=== PATIENT | female | born 1940 | race Caucasian/White ===

== ENCOUNTER → 2018-01-21 | Day surgery (SDC) | payer MEDICARE, OTHER ==
[~2018-01-21] MED LIST: ALPRAZOLAM0.5 M1 PO; ALPRAZOLAM0.5 MG PO; ASPIR 8181 MG PO; BENADRYL25 M1 PO; CARVEDILOL3.125 MG PO; CYMBALTA60 MG PO; ELMIRON100 MG PO; FLECAINIDE ACET50 MG PO; FLUOXETINE HCL20 MG PO; IMMODIUM; IMODIUM2 MG PO; LEVOTHYROXINE100 MCG PO; LIDOCAINE HCL 2% LOCAL INJ 5 ML SDV VIAL INJ ONE; METOPROLOL TART50 MG PO; MONTELUKAST SOD10 MG PO; NITROFURANTOIN100 MG PO; NYSTATIN500000 UNI PO; OMEPRAZOLE40 MG PO; PANTOPRAZOLE SO20 MG PO; PREDNISONE10 MG PO; PROPOFOL IV EMULSION 10 MG/ML 50 ML VIAL ONE; SINGULAIR10 MG PO; VALACYCLOVIR500 MG PO; ZOLPIDEM TARTRA10 MG PO
== END | disposition home or self-care (01) ==
LOC: OR 06:51
PROVIDERS: ATTEND Internal Medicine Gastroenterology
DX: Z12.11 Encounter for screening for malignant neoplasm of colon (principal); K63.5 Polyp of colon; K57.30 Diverticulosis of large intestine without perforation or abscess without bleeding; K64.8 Other hemorrhoids; K21.9 Gastro-esophageal reflux disease without esophagitis; G43.909 Migraine, unspecified, not intractable, without status migrainosus; J44.9 Chronic obstructive pulmonary disease, unspecified; G47.33 Obstructive sleep apnea (adult) (pediatric); I10 Essential (primary) hypertension; E03.9 Hypothyroidism, unspecified; F32.9 Major depressive disorder, single episode, unspecified; Z95.0 Presence of cardiac pacemaker; Z87.891 Personal history of nicotine dependence; Z80.0 Family history of malignant neoplasm of digestive organs
CPT/HCPCS: 45385; 93005; J2001

== ENCOUNTER 2018-03-11 13:29 | Emergency (ER) | payer MEDICARE, OTHER ==
[~2018-03-11] VITALS: Ht 172.7 cm; Wt 65.3 kg
[~2018-03-11 13:29] MED LIST changes: -LIDOCAINE HCL 2% LOCAL INJ 5 ML SDV VIAL INJ ONE; -PROPOFOL IV EMULSION 10 MG/ML 50 ML VIAL ONE
[2018-03-11] MEDS ORDERED: KETOROLAC TROMETHAMINE 30 MG/ML VIAL IV STA (14:23)
[2018-03-11] MEDS ORDERED: SODIUM CHLORIDE 0.9% 1000ML 1,000 ML IV ONE (14:30)
[2018-03-11] MEDS ORDERED: METOCLOPRAMIDE HCL 10 MG/2ML VIAL IV ONE (14:30)
[2018-03-11 14:59] LABS: BASOPHILS # (AUTO) 0.1 (0.0-0.1); BASOPHILS % 0.5 % (0.0-1.0); EOSINOPHILS # (AUTO) 0.1 (0.0-0.4); EOSINOPHILS % 0.5 % (0.0-6.0); HEMOGLOBIN 11.2 g/dL (12.0-16.0); LYMPHOCYTES # (AUTO) 1.6 (1.0-3.2); LYMPHOCYTES % 12.2 % (18.0-39.1); MEAN CORPUSCULAR HEMOGLOBIN 25.1 pg (28-32); MEAN CORPUSCULAR HGB CONC 29.5 g/dL (31-35); MONOCYTES # (AUTO) 0.7 (0.2-0.8); NEUTROPHILS # (AUTO) 10.6 (2.1-6.9); NEUTROPHILS % 81.3 % (38.7-80.0); PLATELET COUNT 304 x10e3/uL (140-360); RED BLOOD COUNT 4.47 x10e6/uL (3.6-5.1); RED CELL DISTRIBUTION WIDTH 15.4 % (11.7-14.4)
[2018-03-11 15:08] LABS: CLARITY,URINE SL CLOUDY (CLEAR); COLOR,URINE YELLOW (YELLOW); KETONES,URINE NEGATIVE (NEGATIVE); LEUKOCYTE ESTERASE ,URINE NEGATIVE (NEGATIVE); NITRITE,URINE NEGATIVE (NEGATIVE); PROTEIN,URINE DIPSTICK TRACE (NEGATIVE)
[2018-03-11 15:09] LABS: BILIRUBIN,URINE NEGATIVE (NEGATIVE); URINE UROBILINOGEN 0.2 mg/dL (0.2 - 1)
[2018-03-11 15:15] LABS: ALANINE AMINOTRANSFERASE 17 IU/L (0-55); ALBUMIN 3.5 g/dL (3.5-5.0); ALBUMIN/GLOBULIN RATIO 0.9 (0.8-2.0); ALKALINE PHOSPHATASE 71 IU/L (40-150); ANION GAP 12.5 mmol/L (8-16); BLOOD UREA NITROGEN 11 mg/dL (7-26); BUN/CREATININE RATIO 16 (6-25); CALCIUM 9.4 mg/dL (8.4-10.2); CARBON DIOXIDE 26 mmol/L (22-29); CHLORIDE 103 mmol/L (98-107); EST GLOMERULAR FILTRATION RATE > 60 ML/MIN (60-); GLUCOSE 122 mg/dL (74-118); POTASSIUM 3.5 mmol/L (3.5-5.1); SODIUM 138 mmol/L (136-145)
[2018-03-11 15:20] LABS: BACTERIA,URINE MODERATE /HPF; EPITHELIAL CELLS,URINE MODERATE /LPF; RBC,URINE 0-5 /HPF (0-5)
== END 2018-03-11 16:17 | disposition home or self-care (01) ==
LOC: ER 13:34
DX: B34.9 Viral infection, unspecified (principal); R51 Headache; I10 Essential (primary) hypertension; E03.9 Hypothyroidism, unspecified; F41.8 Other specified anxiety disorders; Z79.82 Long term (current) use of aspirin
CPT/HCPCS: 36415; 80053; 81001; 85025; 96374; 96376; 99284; J1885; J2765; J7030

== ENCOUNTER 2019-09-18 15:07 | Emergency (ER) | payer MEDICARE, OTHER ==
[~2019-09-18] VITALS: Ht 172.7 cm; Wt 65.3 kg
[2019-09-18 16:17] LABS: BILIRUBIN,URINE NEGATIVE (NEGATIVE); CLARITY,URINE SL CLOUDY (CLEAR); KETONES,URINE NEGATIVE (NEGATIVE); LEUKOCYTE ESTERASE ,URINE SMALL (NEGATIVE); NITRITE,URINE POSITIVE (NEGATIVE); PROTEIN,URINE DIPSTICK TRACE (NEGATIVE); URINE UROBILINOGEN 2 mg/dL (0.2 - 1)
[2019-09-18 16:18] LABS: COLOR,URINE ORANGE (YELLOW)
[2019-09-18 16:33] LABS: BACTERIA,URINE MODERATE /HPF; EPITHELIAL CELLS,URINE MODERATE /LPF; RENAL EPITHELIAL CELLS,URINE RARE; TRANSITIONAL EPI CELLS,URINE FEW
[2019-09-18] MEDS ORDERED: CEFTRIAXONE SOD 1 GM VIAL IM NR (17:30)
[2019-09-18] MEDS ORDERED: LIDOCAINE HCL 1% LOCAL INJ 20 ML VIAL ONE (17:47)
[2019-09-18 17:54] VITALS: BP 155/58
== END 2019-09-18 18:03 | disposition home or self-care (01) ==
LOC: ER 15:07
DX: R30.0 Dysuria (principal); N30.91 Cystitis, unspecified with hematuria; I10 Essential (primary) hypertension; E03.9 Hypothyroidism, unspecified; F32.9 Major depressive disorder, single episode, unspecified
CPT/HCPCS: 81001; 87086; 87186; 99283; J0696; J2001

== ENCOUNTER 2021-08-15 17:15 | Emergency (ER) | payer MEDICARE, OTHER ==
[~2021-08-15] VITALS: Ht 172.7 cm; Wt 65.3 kg
[2021-08-15] MEDS ORDERED: TRAMADOL HCL 50 MG TAB PO ONE (18:30)
[2021-08-15] MEDS ORDERED: DEXAMETHASONE SOD PHOS 10 MG/1 ML VIAL IM ONE (18:30)
[2021-08-15] MEDS ORDERED: MORPHINE SULFATE INJ 4 MG/ML INJ 1ML IV STA (19:16)
[2021-08-15] MEDS ORDERED: ONDANSETRON HCL INJ 2MG/ML 2ML 2 MG/ML VIAL IV STA (19:16)
[2021-08-15 20:22] LABS: BASOPHILS % 0.2 % (0.0-1.0); HEMATOCRIT 34.3 % (34.2-44.1); HEMOGLOBIN 10.2 g/dL (12.0-16.0); LYMPHOCYTES # (AUTO) 0.8 (1.0-3.2); LYMPHOCYTES % 4.3 % (18.0-39.1); MEAN CORPUSCULAR HEMOGLOBIN 26.2 pg (28-32); MEAN CORPUSCULAR HGB CONC 29.7 g/dL (31-35); MEAN CORPUSCULAR VOLUME 87.9 fL (81-99); MONOCYTES # (AUTO) 1.7 (0.2-0.8); MONOCYTES % 9.3 % (4.4-11.3); NEUTROPHILS # (AUTO) 15.2 (2.1-6.9); NEUTROPHILS % 85.5 % (38.7-80.0); PLATELET COUNT 333 x10e3/uL (140-360); RED CELL DISTRIBUTION WIDTH 15.4 % (11.7-14.4)
[2021-08-15 20:30] LABS: INR 1.1; PROTHROMBIN TIME 14.6 seconds (11.9-14.5)
[2021-08-15 20:31] LABS: PARTIAL THROMBOPLASTIN TIME 28.1 seconds (23.8-35.5)
[2021-08-15 20:40] LABS: ALBUMIN 3.3 g/dL (3.5-5.0); ALBUMIN/GLOBULIN RATIO 0.9 (0.8-2.0); ANION GAP 16.3 mmol/L (8-16); CALCIUM 8.7 mg/dL (8.4-10.2); CREATININE, SERUM 0.71 mg/dL (0.57-1.11); POTASSIUM 3.3 mmol/L (3.5-5.1)
== END 2021-08-15 23:20 | disposition other institution (70) ==
LOC: ER 17:30
DX: S72.141A Displaced intertrochanteric fracture of right femur, initial encounter for closed fracture (principal); M48.54XA Collapsed vertebra, not elsewhere classified, thoracic region, initial encounter for fracture; M54.50 Low back pain, unspecified; E87.6 Hypokalemia; I10 Essential (primary) hypertension; E03.9 Hypothyroidism, unspecified; F41.9 Anxiety disorder, unspecified; Z20.822 Contact with and (suspected) exposure to COVID-19
CPT/HCPCS: 36415; 72131; 72192; 80053; 85025; 85610; 85730; 93005; 99284; J1100; J2270; J2405; U0002

== ENCOUNTER 2022-06-10 12:44 | Emergency (ER) | payer MEDICARE, OTHER ==
[~2022-06-10] VITALS: Ht 172.7 cm; Wt 65.3 kg
[2022-06-10] MEDS ORDERED: HYDROCODONE/APAP 5MG-325MG TAB PO PRN (14:30)
[2022-06-10] MEDS ORDERED: CELEBREX100 MG PO (15:28)
== END 2022-06-10 15:40 | disposition home or self-care (01) ==
LOC: ER 13:00
DX: M54.50 Low back pain, unspecified (principal); G89.29 Other chronic pain; I10 Essential (primary) hypertension; E03.9 Hypothyroidism, unspecified; F41.9 Anxiety disorder, unspecified; Z95.810 Presence of automatic (implantable) cardiac defibrillator; Z85.89 Personal history of malignant neoplasm of other organs and systems
CPT/HCPCS: 72110; 99283

== ENCOUNTER 2024-09-02 09:49 | Emergency (ER) | payer MEDICARE, OTHER ==
[~2024-09-02] VITALS: Ht 172.7 cm; Wt 65.3 kg
[~2024-09-02 09:49] MED LIST changes: +CELEBREX100 MG PO
[2024-09-02 09:53] VITALS: PULSE 84; RESP 18; O2SAT 97
[2024-09-02 10:18] VITALS: TEMP 97.5
[2024-09-02 10:39] LABS: BASOPHILS # (AUTO) 0.1 (0.0-0.1); BASOPHILS % 1.1 % (0.0-1.0); EOSINOPHILS # (AUTO) 0.2 (0.0-0.4); EOSINOPHILS % 2.9 % (0.0-6.0); HEMATOCRIT 46.8 % (34.2-44.1); HEMOGLOBIN 14.4 g/dL (12.0-16.0); LYMPHOCYTES # (AUTO) 1.3 (1.0-3.2); LYMPHOCYTES % 17.4 % (18.0-39.1); MEAN CORPUSCULAR HEMOGLOBIN 30.3 pg (28-32); MEAN CORPUSCULAR HGB CONC 30.8 g/dL (31-35); MEAN CORPUSCULAR VOLUME 98.5 fL (81-99); MONOCYTES # (AUTO) 0.5 (0.2-0.8); MONOCYTES % 6.6 % (4.4-11.3); NEUTROPHILS # (AUTO) 5.2 (2.1-6.9); NEUTROPHILS % 71.7 % (38.7-80.0); PLATELET COUNT 223 x10e3/uL (140-360); RED BLOOD COUNT 4.75 x10e6/uL (3.6-5.1); WHITE BLOOD COUNT 7.25 x10e3/uL (4.8-10.8)
[2024-09-02 10:48] LABS: BILIRUBIN,URINE NEGATIVE (NEGATIVE); CLARITY,URINE CLOUDY (CLEAR); COLOR,URINE YELLOW (YELLOW); GLUCOSE, URINE NEGATIVE (NEGATIVE); KETONES,URINE NEGATIVE (NEGATIVE); LEUKOCYTE ESTERASE ,URINE TRACE (NEGATIVE); NITRITE,URINE POSITIVE (NEGATIVE); PH,URINE 7 (5 - 7); PROTEIN,URINE DIPSTICK TRACE (NEGATIVE); URINE UROBILINOGEN 0.2 mg/dL (0.2 - 1)
[2024-09-02 10:49] LABS: BACTERIA,URINE MODERATE /HPF; EPITHELIAL CELLS,URINE MANY /LPF
[2024-09-02 11:15] LABS: ALBUMIN 3.8 g/dL (3.5-5.0); ANION GAP 16.3 mmol/L (8-16); BILIRUBIN,TOTAL 1.2 mg/dL (0.2-1.2); CALCIUM 9.6 mg/dL (8.4-10.2); CREATININE, SERUM 0.72 mg/dL (0.57-1.11); MAGNESIUM 1.7 MG/DL (1.3-2.1); TOTAL PROTEIN 7.5 g/dL (6.5-8.1)
[2024-09-02 11:19] LABS: POTASSIUM 3.3 mmol/L (3.5-5.1)
[2024-09-02] MEDS ORDERED: CEFDINIR300 MG PO (11:48)
[2024-09-02] MEDS: DIPHENHYDRAMINE HCL INJ 50 MG/ML VIAL IV ONE (12:32)
[2024-09-02] MEDS: SODIUM CHLORIDE 0.9% 1000ML 1,000 ML IV STA (12:32)
[2024-09-02] MEDS: HYDROCODONE/APAP 5MG-325MG TAB PO ONE (12:32)
[2024-09-02 12:53] LABS: THYROID STIMULATING HORMONE 0.112 uIU/mL (0.350-4.940)
== END 2024-09-02 13:23 | disposition home or self-care (01) ==
LOC: ER 10:00
DX: R30.0 Dysuria (principal); N39.0 Urinary tract infection, site not specified; M54.9 Dorsalgia, unspecified; G89.29 Other chronic pain; I10 Essential (primary) hypertension; E03.9 Hypothyroidism, unspecified; F41.9 Anxiety disorder, unspecified; R94.31 Abnormal electrocardiogram [ECG] [EKG]; Z95.810 Presence of automatic (implantable) cardiac defibrillator; Z85.89 Personal history of malignant neoplasm of other organs and systems
CPT/HCPCS: 36415; 71045; 74176; 80053; 81001; 83735; 84443; 85025; 87086; 93005; 99284; J2470; J7030